=== PATIENT | male | born 1960 | race Hispanic/Latino ===

== ENCOUNTER → 2017-05-18 | Outpatient (CLI) | payer BC ==
--- NOTE | 2017-05-18 23:54 | DI ---
PA /LATERAL CHEST X-RAY, 05/18/2017 2:32 PM : Clinical History: Chest congestion. Previous Exam: None at this facility. There is no acute soft tissue or bony abnormality. Heart size is normal. Lungs are clear. Mediastinal structures are normal. There are no pulmonary nodules. IMPRESSION: Normal chest x-ray.
== END ==
LOC: MOB RAD 14:42
PROVIDERS: ATTEND Nurse Practitioner Family
DX: R05 Cough (principal); R09.89 Other specified symptoms and signs involving the circulatory and respiratory systems; F17.200 Nicotine dependence, unspecified, uncomplicated
CPT/HCPCS: 71020

== ENCOUNTER → 2017-05-25 | Outpatient (CLI) | payer BC ==
[2017-05-25 09:54] LABS: CHOL/HDL RATIO 2.62 RATIO (0-4.0); LDL CHOLESTEROL,CALCULATED 78.6 mg/dL
[2017-05-25 09:55] LABS: BLOOD UREA NITROGEN 15 mg/dL (7-22); CALCIUM 9.1 mg/dL (8.7-10.7); EST GLOMERULAR FILTRATION > 60 (>60 ml/min/1.73m(2)); SERUM ALBUMIN 4.4 g/dL (3.5-4.8)
[2017-05-25 10:01] LABS: HEMATOCRIT 46.8 % (42.0-52.0); MEAN CORPUSCULAR HEMOGLOBIN 30.9 PG (27-31); MEAN CORPUSCULAR HGB CONC 34.2 g/dL (33-37); MEAN CORPUSCULAR VOLUME 90.3 FL (80-90); RED BLOOD COUNT 5.18 10^6/uL (4.70-6.10)
[2017-05-25 10:16] LABS: FREE T4 (FREE THYROXINE) 1.1 ng/dL (0.93-1.71)
[2017-05-25 10:17] LABS: HEMOGLOBIN A1C 5.53 % (4.2-6.0)
== END ==
LOC: LAB 09:32
PROVIDERS: ATTEND Family Medicine
DX: I10 Essential (primary) hypertension (principal); E78.5 Hyperlipidemia, unspecified; R05 Cough; F17.200 Nicotine dependence, unspecified, uncomplicated; Z83.3 Family history of diabetes mellitus
CPT/HCPCS: 36415; 80053; 80061; 83036; 84439; 84443; 85027

== ENCOUNTER → 2017-05-27 | Outpatient (CLI) | payer BC ==
--- NOTE | 2017-05-28 18:02 | DI ---
MRI RIGHT KNEE SCAN, 05/27/2017 2:06 PM: Clinical History: Right knee pain. Previous Exam: 08/14/2012. Technique: Axial, coronal, and sagittal PD and fat saturated PD; axial T1 weighted. There is no soft tissue edema. A very small joint effusion is present. No abnormal bone signal patter n is present. The medial and lateral collateral ligaments and the anterior and posterior cruciate lig aments and the lateral meniscus are normal. There is a flap tear in the body of the medial meniscus a nd this exits on the underside and courses posteriorly. The quadriceps and popliteus tendons and the tendons of the medial and lateral heads of the gastrocnemius muscle are normal. There is mild tendino sis of the proximal portion of the patellar tendon. The articular surfaces of all 3 compartments are intact. Readin. Small joint effusion. There is a flap tear in the body of the medial meniscus that extends to the posterior horn and exits on the undersurface of the cartilage. Mild tendinosis is present in the pat ellar tendon at the attachment to the patella. 2. The MCL, LCL, ACL, lateral meniscus, quadriceps and popliteus tendons and the tendons of the medi al and lateral heads of the gastrocnemius muscle are normal. The articular surfaces of all 3 compartm ents are also normal.
== END ==
LOC: MRI 13:58
PROVIDERS: ATTEND Nurse Practitioner Family
DX: M25.561 Pain in right knee (principal); M25.461 Effusion, right knee; M23.221 Derangement of posterior horn of medial meniscus due to old tear or injury, right knee
CPT/HCPCS: 73721